=== PATIENT | male | born 1950 | race Caucasian/White ===

== ENCOUNTER 2016-07-13 07:25 | Day surgery (SDC) | payer OTHER ==
[~2016-07-13 07:25] MED LIST: Lactated Ringers 1,000 ML IV SCH; ceFAZolin 2 GM in Premix Bag 1 BAG IV SCH
--- NOTE | 2016-07-13 08:14 | PCM.PREANE ---
Preanesthetic Assessment - Anesthesia/Transfusion/Family Hx Anesthesia History: Prior Anesthesia Without Reaction Family History of Anesthesia Reaction: No Transfusion History: No Prior Transfusion(s) Intubation History: Unknown - Review of Systems General: No Symptoms Pulmonary: No Symptoms Cardiovascular: No Symptoms Gastrointestinal: No symptoms Neurological: No Symptoms Other: Reports: None - Physical Assessment NPO Status Date: 07/12/16 NPO Status Time: 18:00 O2 Sat by Pulse Oximetry: 96 Respiratory Rate: 16 Vital Signs: Last Vital Signs Temp 36.6 C 07/13/16 07:43 Pulse 75 07/13/16 07:43 Resp 16 07/13/16 07:43 BP 120/71 07/13/16 07:43 Pulse Ox 96 07/13/16 07:43 Height: 1.83 m Weight: 93.44 kg ASA Class: 2 Mental Status: Alert & Oriented x3 Airway Class: Mallampati = 2 Dentition: Reports: Normal Dentition Thyro-Mental Finger Breadths: 3 Mouth Opening Finger Breadths: 3 ROM/Head Extension: Full Lungs: Clear to auscultation, Normal respiratory effort Cardiovascular: Regular Rate, Regular Rhythm - Allergies Allergies/Adverse Reactions: Allergies Allergy/AdvReac Type Severity Reaction Status Date / Time No Known Allergies Allergy Verified 08/07/13 08:13 - Blood Blood Available: No - Anesthesia Plan Pre-Op Medication Ordered: None - Acknowledgements Anesthesia Type Planned: General Anesthesia Pt an Appropriate Candidate for the Planned Anesthesia: Yes Alternatives and Risks of Anesthesia Discussed w Pt/Guardian: Yes Pt/Guardian Understands and Agrees with Anesthesia Plan: Yes PreAnesthesia Questionnaire Cardiovascular History: Reports: High Cholesterol, Hypertension Respiratory History: Reports: None Gastrointestinal History: Reports: Colon Polyp, GERD Genitourinary History: Reports: BPH Musculoskeletal History: Reports: Arthritis, Back Pain, Chronic Neurological History: Psychiatric History: Reports: None Endocrine/Metabolic History: Reports: None Hematologic History: Reports: None Immunologic History: Reports: None Oncologic (Cancer) History: Reports: None Dermatologic History: Reports: None - Past Surgical History Head Surgeries/Procedures: Reports: None HEENT Surgical History: Reports: Cataract Surgery, Tonsillectomy GI Surgical History: Reports: Colonoscopy, EGD Male Surgical History: Reports: Vasectomy Neurological Surgical History: Reports: Lumbar Spine Other Neurological Surgeries/Procedures: hx lower back surgery for herniated disc - SUBSTANCE USE Smoking Status *Q: Never Smoker Tobacco Use Within Last Twelve Months: No Recreational Drug Use History: No - HOME MEDS Home Medications: Home Meds Acetaminophen [Acetaminophen Extra Strength] 3 tab PO ASDIRECTED 09/30/15 [ History] Ascorbic Acid [Vitamin C] 500 mg PO DAILY 09/30/15 [History] Aspirin/Calcium Carbonate/Mag [Aspirin Buffered 325 mg Tab] 325 mg PO DAILY 10/07 [History] Carisoprodol 350 mg PO QID PRN 09/30/15 [History] Ergocalciferol (Vitamin D2) [Vitamin D] 400 units PO DAILY 09/30/15 [History] Finasteride 5 mg PO DAILY 09/30/15 [History] Fish Oil/Emerson-3 Fatty Acids [Fish Oil 1,000 MG] 1,000 mg PO DAILY 09/30/15 [ History] Losartan/Hydrochlorothiazide [Losartan-HCTZ 100-25 MG] 1 tab PO DAILY 09/30/15 [ History] Multivits-Minerals/FA/Lycopene [One Daily [employer] Tablet] 1 tab PO DAILY [History] Omeprazole 40 mg PO DAILY 09/30/15 [History] Potassium Gluconate 550 mg PO DAILY 09/30/15 [History] Tamsulosin HCl [Flomax] 0.4 mg PO BEDTIME 09/30/15 [History] Tolterodine [Detrol] 2 mg PO BEDTIME 07/08/16 [History] - CURRENT (IN HOUSE) MEDS Current Meds: Current Medications Lactated Ringer's (Ringers, Lactated) 1,000 mls @ 125 mls/hr IV ASDIRECTED [facility] Last Admin: 07/13/16 07:45 Dose: 125 mls/hr Cefazolin Sodium/Dextrose 2 gm (/ Premix) 50 mls @ 100 mls/hr IV ONETIME [facility]
[2016-07-13] MEDS ORDERED: ceFAZolin 1 GM Vial ONE (08:16)
[2016-07-13] MEDS ORDERED: Bupivacaine 0.5% 10 ML SDV ONE (08:16)
[2016-07-13] MEDS ORDERED: Lidocaine 2% 5 ML SDV ONE (09:22)
[2016-07-13] MEDS ORDERED: Midazolam 1 MG/ML 2 ML SDV ONE (09:22)
[2016-07-13] MEDS ORDERED: fentaNYL 250 MCG/5 ML SDV ONE (09:22)
[2016-07-13] MEDS ORDERED: Propofol 200 MG/20 ML SDV ONE (09:22)
[2016-07-13] MEDS ORDERED: Ondansetron 4 MG/2 ML SDV ONE (09:23)
[2016-07-13] MEDS ORDERED: Rocuronium 10 MG/ML 10 ML Syringe ONE (09:23)
[2016-07-13] MEDS ORDERED: Neostigmine Methylsulfate 1 MG/ML 5 ML Syringe ONE (09:23)
[2016-07-13] MEDS ORDERED: Ketorolac 30 MG/ML SDV ONE (09:23)
[2016-07-13] MEDS ORDERED: Morphine 10 MG/ML Syringe IVPUSH PRN (10:59)
[2016-07-13] MEDS ORDERED: Acetaminophen/HYDROcodone 325-5 MG Tab PO PRN (10:59)
[2016-07-13] MEDS ORDERED: Lactated Ringers 1,000 ML IV SCH (11:00)
--- NOTE | 2016-07-13 11:01 | PCM.OPNOTE ---
- General Post-Op/Procedure Note Operative Procedure(s): Repair incarcerated umbilical hernia Pre Op Diagnosis: Incarcerated umbilical hernia Post-Op Diagnosis: Same Anesthesia Technique: General ET tube (ASA II) Primary Surgeon: Travis Haq Fluid Replacement, Intraop: 1,000 EBL in mLs: 5 Condition: Good Free Text/Narrative:: Dictation [id number]
[2016-07-13] MEDS ORDERED: fentaNYL 100 MCG/2 ML SDV IVPUSH PRN (11:08)
[2016-07-13 12:47] VITALS: BP 101/65
--- NOTE | 2016-07-13 19:29 | OR ---
SURGEON: Travis Haq M.D. DATE OF PROCEDURE: 07/13/2016 OPERATION PERFORMED: Repair of incarcerated umbilical hernia. ANESTHESIA: General endotracheal. ASA CLASSIFICATION: II. PREOPERATIVE DIAGNOSIS: Incarcerated umbilical hernia. POSTOPERATIVE DIAGNOSIS: Incarcerated umbilical hernia. ESTIMATED BLOOD LOSS: 5 mL. INTRAOPERATIVE FLUID REPLACEMENT: 1000 mL of crystalloid. DESCRIPTION OF PROCEDURE: The patient was taken to the operating room and placed on the operating table in the supine position. A time-out was called for appropriate identification of the patient and procedure. Thigh-high TEDs and sequential compression boots had been placed. The surgical site had been marked prior to the patient entering the operating room. Following satisfactory attainment of general endotracheal anesthesia, the abdomen was prepped with DuraPrep solution. Sterile drapes were applied. A curvilinear incision was marked out in the infraumbilical skin and then infiltrated with 0.5% Marcaine solution. The skin incision was made and deepened through the subcutaneous tissue obtaining hemostasis with the use of electrocautery. The hernia sac was completely mobilized with care taken not to buttonhole the umbilicus. Once the hernia was mobilized, this was easily able to be reduced. The fascial defect was approximately 7 mm in diameter. The hernial defect was repaired with multiple interrupted 0 Ethibond sutures. All sutures were placed under direct vision and held with hemostats until the final suture had been placed. Once the sutures were tied down, the patient was given a Valsalva maneuver to 50 cm of water. The repair was solid. The wound was inspected for hemostasis. Small bleeding sites were electrocoagulated. The umbilicus was tacked to the underlying fascia with a 3-0 Polysorb suture. The subcutaneous tissue was closed with running 3-0 Polysorb and the skin edges reapproximated with subcuticular Monocryl reinforced with Steri-Strips. A sterile Tegaderm pad was placed as a dressing. Sponge, needle, and instrument counts were all correct. The patient tolerated the procedure well. Following emergence from anesthesia and extubation, he was taken to the recovery room in satisfactory condition. LUIS DANIEL AMBRIZ /[id number]
== END 2016-07-13 13:30 | disposition home or self-care (01) ==
LOC: MW.SDS 07:25
PROVIDERS: ATTEND Surgery
PROC: 0WQF0ZZ Repair Abdominal Wall, Open Approach (ICD-10-PCS; principal; 2016-07-13)
DX: K42.9 Umbilical hernia without obstruction or gangrene (principal); N40.1 Benign prostatic hyperplasia with lower urinary tract symptoms; N13.8 Other obstructive and reflux uropathy; K21.9 Gastro-esophageal reflux disease without esophagitis; I10 Essential (primary) hypertension; E29.1 Testicular hypofunction; M18.0 Bilateral primary osteoarthritis of first carpometacarpal joints; M54.31 Sciatica, right side; E78.00 Pure hypercholesterolemia, unspecified; Z86.010 Personal history of colon polyps; Z79.82 Long term (current) use of aspirin; Z79.899 Other long term (current) drug therapy; Z98.52 Vasectomy status; Z98.49 Cataract extraction status, unspecified eye; Z98.890 Other specified postprocedural states
CPT/HCPCS: 49585; A9270; J0690; J1885; J2250; J2405; J3010; J7120; 00750; J2704